=== PATIENT | male | born 1975 | race Hispanic/Latino ===

== ENCOUNTER 2018-11-04 14:32 | Emergency (ER) | payer MEDICAID, OTHER ==
[2018-11-04 14:32] VITALS: BMI 45.3
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
[2018-11-04 16:28] VITALS: BP 132/81; PULSE 75; RESP 18; TEMP 98.9; O2SAT 98
== END 2018-11-04 16:29 | disposition home or self-care (01) ==
LOC: ED 14:32
DX: Z76.0 Encounter for issue of repeat prescription (principal)